=== PATIENT | male | born 1980 ===

== ENCOUNTER 2021-03-11 09:50 | Outpatient (CLI) | payer OTHER | END 2021-03-11 09:55 | disposition home or self-care (01) | LOC: SONOGRAMA 09:50 | DX: K82.8 Other specified diseases of gallbladder (principal); R10.84 Generalized abdominal pain ==

== ENCOUNTER 2022-09-18 13:46 | Outpatient (CLI) | payer OTHER | END 2022-09-18 14:01 | disposition home or self-care (01) | LOC: RAD 13:46 | DX: S22.42XA Multiple fractures of ribs, left side, initial encounter for closed fracture (principal) ==